=== PATIENT | female | born 1975 | race Caucasian/White ===

== ENCOUNTER 2021-03-28 18:10 | Emergency (ER) | payer BC ==
[2021-03-28 18:19] VITALS: BP 128/86; PULSE 84; TEMP 98.3; BMI 20.5
[2021-03-28] MEDS ORDERED: MINERAL OIL ENEMA 133 ML ENEMA PR ONE (19:43)
== END 2021-03-28 21:33 | disposition home or self-care (01) ==
LOC: JER 18:10
DX: K59.00 Constipation, unspecified (principal)
CPT/HCPCS: 74019-TC-FY; 99284-25